=== PATIENT | female | born 1950 | race Caucasian/White ===

== ENCOUNTER 2018-10-10 23:47 | Emergency (ER) | payer BC, MEDICARE ==
[2018-10-11] MEDS ORDERED: IPRATROPIUM/ALBUTEROL 0.5-2.5 MG/3 ML AMPUL NEB ONE (00:24)
[2018-10-11 01:14] LABS: ABSOLUTE MONOCYTES (AUTO) 1.1 10^3/uL (0.1-1.4); ABSOLUTE NEUT (AUTO) 10.5 10^3/uL (1.7-8.2); BASOPHILS % (AUTO) 0.3 % (0-2); EOSINOPHILS % (AUTO) 0.2 % (0-6); HEMATOCRIT 35.8 % (36.0-47.0); HEMOGLOBIN 11.6 g/dL (12.0-15.5); MEAN CORPUSCULAR HGB CONC 32.5 g/dL (32.0-36.0); MEAN CORPUSCULAR VOLUME 80 fl (80-97); MONOCYTES % (AUTO) 8.5 % (3-13); PLATELET COUNT 220 10^3/uL (150-450); RED BLOOD COUNT 4.47 10^6/uL (3.72-5.28); RED CELL DISTRIBUTION WIDTH 14.7 % (11.5-14.0); TOTAL CELLS COUNTED % (AUTO) 100 %; WHITE BLOOD COUNT 12.7 10^3/uL (4.0-10.5)
[2018-10-11 01:41] LABS: ALANINE AMINOTRANSFERASE 59 U/L (9-52); ALBUMIN 3.4 g/dL (3.5-5.0); ALKALINE PHOSPHATASE 68 U/L (38-126); ANION GAP 8 (5-19); ASPARTATE AMINO TRANSFERASE 26 U/L (14-36); BILIRUBIN,DIRECT 0.2 mg/dL (0.0-0.4); BILIRUBIN,TOTAL 0.7 mg/dL (0.2-1.3); BLOOD UREA NITROGEN 10 mg/dL (7-20); CALCIUM 8.8 mg/dL (8.4-10.2); CARBON DIOXIDE 27 mmol/L (22-30); CHLORIDE 102 mmol/L (98-107); GLUCOSE 160 mg/dL (75-110); POTASSIUM 4.4 mmol/L (3.6-5.0); SODIUM 137.4 mmol/L (137-145); TOTAL PROTEIN 5.6 g/dL (6.3-8.2)
--- NOTE | 2018-10-11 01:48 | RADIOLOGY REPORT (SQ) ---
EXAM DESCRIPTION: XR CHEST 1 VIEW COMPLETED DATE/TME: 10/11/2018 00:19 CLINICAL HISTORY: 67 years, Female, fever, cough COMPARISON: None. NUMBER OF VIEWS: TECHNIQUE: LIMITATIONS: None. FINDINGS: No evidence of acute pulmonary infiltrate or pleural effusion. There is mild elevation of the left hemidiaphragm, probably due to prior left upper lobectomy. There is soft tissue prominence in the right paratracheal region. The heart is top normal in size. Pulmonary vascularity appears normal. IMPRESSION: No acute infiltrate. Soft tissue prominence in the right paratracheal region. While this may merely represent prominent brachiocephalic vessels, a mediastinal mass or adenopathy cannot be excluded. Nonemergent chest CT might prove helpful for further evaluation of this finding. copyright 2010 [employer]- All Rights Reserved
[2018-10-11 02:04] LABS: APPEARANCE,URINE TURBID; BILIRUBIN,URINE NEGATIVE (NEGATIVE); COLOR,URINE YELLOW; GLUCOSE, URINE NEGATIVE (NEGATIVE); KETONES,URINE NEGATIVE (NEGATIVE); LEUKOCYTE ESTERASE,URINE LARGE (NEGATIVE); NITRITE,URINE NEGATIVE (NEGATIVE); PROTEIN,URINE NEGATIVE (NEGATIVE); URINE SPECIFIC GRAVITY 1.024; UROBILINOGEN,URINE NEGATIVE mg/dL (<2.0)
--- NOTE | 2018-10-11 02:35 | ER Document Report ---
ED General - General Chief Complaint: Post Surgical Pain Stated Complaint: TROUBLE BREATHING Time Seen by Provider: 10/11/18 00:03 Primary Care Provider: RADHA RAVI MD [Primary Care Provider] - Follow up as needed Notes: Patient is a pleasant 67-year-old female with a recent diagnosis of a mass in her lung. 2 days [facility] and had a left upper lobe ectomy. This morning she was discharged home. This afternoon she started to develop a fever and then started having some wheezing and some difficulty breathing. No vomiting. No diarrhea. No abdominal pain. She did have a Solo catheter when she was admitted. No other complaints at this time. TRAVEL OUTSIDE OF THE [place] IN LAST 30 DAYS: No - Related Data Allergies/Adverse Reactions: Iodinated Contrast- Oral and IV Dye [IV Dye, Iodine Containing] Allergy (Interm ediate, Verified 01/22/14 14:10) Hives Sulfa (Sulfonamide Antibiotics) Allergy (Verified 01/22/14 14:10) rash, hives codeine [Codeine] Adverse Reaction (Severe, Verified 01/22/14 14:10) stomach spasms, difficulty breathing Past Medical History - Social History Smoking Status: Former Smoker Frequency of alcohol use: None Drug Abuse: None Family History: None Patient has suicidal ideation: No Patient has homicidal ideation: No - Past Medical History Cardiac Medical History: Reports: Hx Hypercholesterolemia Denies: Hx Coronary Artery Disease, Hx Heart Attack, Hx Hypertension Pulmonary Medical History: Reports: Hx Pneumonia - 10 yrs ago, not hospitalized Denies: Hx Asthma, Hx Bronchitis, Hx COPD Neurological Medical History: Denies: Hx Cerebrovascular Accident, Hx Seizures Endocrine Medical History: Reports: Hx Diabetes Mellitus Type 2 Renal/ Medical History: Denies: Hx Peritoneal Dialysis Musculoskeletal Medical History: Denies Hx Arthritis Past Surgical History: Reports: Hx Cholecystectomy, Hx Hysterectomy, Hx Thyroid Surgery - Immunizations Hx Diphtheria, Pertussis, Tetanus Vaccination: Yes - 9 yrs Hx Pneumococcal Vaccination: 03/06/12 Review of Systems - Review of Systems Notes: My Normal Review Basic REVIEW OF SYSTEMS: CONSTITUTIONAL : Fever EENT: Denies eye, ear, throat, or mouth pain or symptoms. Denies nasal or sinus congestion. CARDIOVASCULAR: Denies chest pain. RESPIRATORY: Wheezing and some dyspnea GASTROINTESTINAL: Denies abdominal pain. Denies nausea, vomiting, or diarrhea. GENITOURINARY: Denies difficulty urinating, painful urination, burning, frequency, or blood in urine. MUSCULOSKELETAL: Denies neck or back pain or joint pain or swelling. SKIN: Denies rash or skin lesions. NEUROLOGICAL: Denies altered mental status or loss of consciousness. Denies headache. Denies weakness or paralysis or loss of use of either side. Denies problems with gait or speech. Denies sensory or motor loss. ALL OTHER SYSTEMS REVIEWED AND NEGATIVE. Physical Exam - Vital signs Vitals: Temp Pulse Resp BP Pulse Ox 98.9 F 105 H 22 H 118/63 95 10/10/18 23:47 10/10/18 23:47 10/10/18 23:47 10/10/18 23:47 10/10/18 23:47 - Notes Notes: General Appearance: Well nourished, alert, cooperative, mild acute distress, no obvious discomfort. Vitals: reviewed, See vital signs table. Head: no swelling or tenderness to the head Eyes: PERRL, EOMI, Conjuctiva clear Mouth: No decreasd moisture Throat: No tonsillar inflammation, No airway obstruction, No lymphadenopathy Neck: Supple, no neck tenderness, No thyromegaly Lungs: Scattered wheezing, No rales, No rhonci, No accessory muscle use, good air exchange bilaterally. Heart: Normal rate, Regular rythm, No murmur, no rub Abdomen: Normal BS, soft, No rigidity, No abdominal tenderness, No guarding, no rebound, no abdominal masses, no organomegaly Extremities: good pulses in all extremities, no swelling or tenderness in the extremities, no edema. Skin: warm, dry, appropriate color, no rash Neuro: speech clear, oriented x 3, normal affect, responds appropriately to questions. Course - Re-evaluation Re-evalutation: 10/11/18 02:35 On reevaluation patient is feeling much improved after the breathing treatment. I turned off her oxygen. I will adjust Rocephin as it appears that she may have a UTI. This could be contaminant however she has fever and large leukocyte esterase and therefore we will going treat her. I will monitor her for another hour with oxygen turned off to make sure there her vital signs remained stable and that her breathing remains normal 10/11/18 06:11 She continues to feel well and look improved. Said her breathing continues to feel normal. She has not had recurrent fever. Heart rate is in upper 90s. She is safe to be discharged home. I did give her a dose of Rocephin. I will place her on Keflex. I did discuss the case with her surgeon, Dr. Ravi. I went over the CT scan findings with him and the patient's laboratory findings. He is agreement with plan of patient see me in box for UTI with return to ER if she has worsening recurrent fevers, difficulty breathing, or feels unwell. Patient agrees with plan as well. I informed her to have a very low threshold to return to ER if she feels that she is worsening in any way. Patient will be discharged home. Dictation of this chart was performed using voice recognition software; therefore, there may be some unintended grammatical errors. - Vital Signs Vital signs: Temp Pulse Resp BP Pulse Ox 98.8 F 72 19 110/59 L 99 10/11/18 05:59 10/11/18 05:59 10/11/18 05:59 10/11/18 05:59 10/11/18 05:59 - Laboratory Result Diagrams: 10/11/18 00:45 10/11/18 00:45 Laboratory results interpreted by me: 10/11/18 10/11/18 10/11/18 00:45 00:45 01:00 WBC 12.7 H Hgb 11.6 L Hct 35.8 L MCH 26.0 L RDW 14.7 H Seg Neutrophils % 83.0 H Lymphocytes % 8.0 L Absolute Neutrophils 10.5 H Glucose 160 H ALT 59 H Total Protein 5.6 L Albumin 3.4 L Ur Leukocyte Esterase LARGE H Discharge - Discharge Clinical Impression: Fever Qualifiers: Fever type: unspecified Qualified Code(s): R50.9 - Fever, unspecified UTI (urinary tract infection) Qualifiers: Urinary tract infection type: site unspecified Hematuria presence: without hematuria Qualified Code(s): N39.0 - Urinary tract infection, site not specified Dyspnea Qualifiers: Dyspnea type: unspecified Qualified Code(s): R06.00 - Dyspnea, unspecified Condition: Good Disposition: HOME, SELF-CARE Additional Instructions: I just discussed your CT scan findings with Dr. Tan. He says the findings on the CT scan are normal postoperatively. You do have a urinary tract infection. I did send your urine for culture so if it grows out bacteria not covered by the antibiotic I started you on we can call you and change antibiotic. Please use albuterol vials and your nebulizer machine at home to help with any wheezing or difficulty breathing. Have a low threshold to return to ER if you are having recurrent fevers not responding to Tylenol, fevers are still occurring 24 hours for now, wheezing not improving with the nebulizer treatments at home, or if you feel that you are worsening in any way. Prescriptions: Albuterol Sulfate [Ventolin 0.083% Neb 2.5 mg/3 mL Ampul] 1 vial NEB Q4 PRN #30 vial PRN Reason: wheezing difficulty breathing Cephalexin Monohydrate [Keflex 500 mg Capsule] 500 mg PO TID #21 capsule Referrals: RADHA RAVI MD [Primary Care Provider] - Follow up in 3-5 days
[2018-10-11] MEDS ORDERED: CEFTRIAXONE 1 GM/D5W RTU 1 GM/50 ML RTUPB IV ONE (03:00)
[2018-10-11] MEDS ORDERED: OXYCODONE HCL SR 10 MG TABLET PO ONE (03:34)
[2018-10-11] MEDS ORDERED: CEFTRIAXONE INJ 1000 MG VIAL ONE (03:34)
[2018-10-11] MEDS ORDERED: ONDANSETRON HCL INJ/PF 4 MG/2 ML SDV IV ONE (05:29)
--- NOTE | 2018-10-11 05:31 | RADIOLOGY REPORT (SQ) ---
EXAM DESCRIPTION: CT CHEST WITHOUT IV CONTRAST COMPLETED DATE/TME: 10/11/2018 03:37 CLINICAL HISTORY: 67 years, Female, confirm xray findings COMPARISON: None. TECHNIQUE: Axial CT images of the chest were obtained without contrast. Sagittal and coronal reformats were performed. DLP 666 Images stored on PACS. All CT scanners at this facility use dose modulation, iterative reconstruction, and/or weight based dosing when appropriate to reduce radiation dose to as low as reasonably achievable (ALARA). [facility]: Dose Right [facility]: CareDose [facility]: Dose Right [facility]: Teradose 4D [facility]: [employer] LIMITATIONS: None. FINDINGS: The visualized portions of the upper abdomen are unremarkable. The thoracic aorta is unremarkable. The heart appears unremarkable. There is a small amount of pneumomediastinum. There is no pericardial effusion. Calcified left hilar lymph nodes are noted. No pathologically enlarged mediastinal lymph nodes. The tracheobronchial tree is unremarkable. There is no focal consolidation. There is a small left hemopneumothorax. Tiny right pneumothorax. No displaced fracture is identified. Nondisplaced fractures involving the anterior aspect of the left second through fourth ribs is suspected. There is subcutaneous emphysema along the anterior aspect of the left chest. IMPRESSION: Small left hydropneumothorax with a tiny amount of pneumomediastinum and subcutaneous emphysema along the left chest, likely secondary to nondisplaced fractures involving the left ribs. Tiny right pleural effusion. TECHNICAL DOCUMENTATION: Quality ID # [id number]: Final reports with documentation of one or more dose reduction techniques (e.g., Automated exposure control, adjustment of the mA and/or kV according to patient size, use of iterative reconstruction technique) copyright 2011 [employer]- All Rights Reserved
[2018-10-11 05:59] VITALS: BP 110/59
== END 2018-10-11 06:37 | disposition home or self-care (01) ==
LOC: ER 23:47
DX: N39.0 Urinary tract infection, site not specified (principal); G89.18 Other acute postprocedural pain; R06.2 Wheezing; R50.9 Fever, unspecified; R06.00 Dyspnea, unspecified; E78.00 Pure hypercholesterolemia, unspecified; E11.9 Type 2 diabetes mellitus without complications; Z88.2 Allergy status to sulfonamides; Z88.6 Allergy status to analgesic agent; Z90.49 Acquired absence of other specified parts of digestive tract; Z90.710 Acquired absence of both cervix and uterus
CPT/HCPCS: 94640; 99285; 96374; 96375; 36415; 87040; 87086; 85025; 80053; 81001; 71045; 71250; A9270 ×2; J0696; J2405; J7620

== ENCOUNTER 2018-10-15 20:57 | Emergency (ER) | payer MEDICARE ==
[2018-10-15 21:43] LABS: ABSOLUTE BASOPHILS # (AUTO) 0.1 10^3/uL (0.0-0.2); ABSOLUTE EOSINOPHILS # (AUTO) 0.5 10^3/uL (0.0-0.6); ABSOLUTE LYMPHOCYTES (AUTO) 2.5 10^3/uL (0.5-4.7); ABSOLUTE NEUT (AUTO) 6.9 10^3/uL (1.7-8.2); BASOPHILS % (AUTO) 1.3 % (0-2); EOSINOPHILS % (AUTO) 4.9 % (0-6); HEMATOCRIT 37.6 % (36.0-47.0); HEMOGLOBIN 12.4 g/dL (12.0-15.5); LYMPHOCYTES % (AUTO) 22.6 % (13-45); MEAN CORPUSCULAR HEMOGLOBIN 26.3 pg (27.0-33.4); MEAN CORPUSCULAR VOLUME 80 fl (80-97); MONOCYTES % (AUTO) 9.3 % (3-13); PLATELET COUNT 346 10^3/uL (150-450); RED BLOOD COUNT 4.71 10^6/uL (3.72-5.28); RED CELL DISTRIBUTION WIDTH 14.9 % (11.5-14.0); SEGMENTED NEUTROPHILS % (AUTO) 61.9 % (42-78); TOTAL CELLS COUNTED % (AUTO) 100 %; WHITE BLOOD COUNT 11.1 10^3/uL (4.0-10.5)
[2018-10-15 22:01] LABS: ALANINE AMINOTRANSFERASE 32 U/L (9-52); ALBUMIN 3.3 g/dL (3.5-5.0); ALKALINE PHOSPHATASE 92 U/L (38-126); ANION GAP 10 (5-19); ASPARTATE AMINO TRANSFERASE 16 U/L (14-36); BILIRUBIN,DIRECT 0.2 mg/dL (0.0-0.4); BILIRUBIN,TOTAL 0.5 mg/dL (0.2-1.3); BLOOD UREA NITROGEN 13 mg/dL (7-20); CALCIUM 9.6 mg/dL (8.4-10.2); CARBON DIOXIDE 26 mmol/L (22-30); CHLORIDE 103 mmol/L (98-107); GLUCOSE 145 mg/dL (75-110); POTASSIUM 4.2 mmol/L (3.6-5.0); SODIUM 139.3 mmol/L (137-145); TOTAL PROTEIN 5.9 g/dL (6.3-8.2)
--- NOTE | 2018-10-15 22:11 | ER Document Report ---
ED General - General Chief Complaint: Post Surgical Pain Stated Complaint: POST OP COMPLICATION Time Seen by Provider: 10/15/18 21:25 Primary Care Provider: RADHA BERNSTEIN MD [Primary Care Provider] - Follow up as needed Notes: Patient is a 67-year-old female with a past medical history of a partial left- sided pneumonectomy within the past 1 week who presents due to concerns of serous drainage coming from the mid axillary incisional line. Patient states that earlier today she began leaking clear fluid from the area and each time she would cough a large quantity would expel from the wound. States that she has not had drainage previously from this area and was concerned prompting her to come to the emergency department. Family did contact on-call CT surgeon who reported that the patient would likely just need a stitch placed in an adhesive dressing. The patient denies any increased shortness of breath, spreading redness to the area or increasing pain to the area. Does note that since she had surgery she has continued to have intermittent, spasming, stabbing pain to the affected area in the left lower rib space. Regards the pain is being mild to moderate, improved by Tylenol and oxycodone. Nothing seems to worsen or trigger the pain. Denies fever or constitutional symptoms. TRAVEL OUTSIDE OF THE [place] IN LAST 30 DAYS: No - Related Data Allergies/Adverse Reactions: Iodinated Contrast- Oral and IV Dye [IV Dye, Iodine Containing] Allergy (Intermediate, Verified 01/22/14 14:10) Hives Sulfa (Sulfonamide Antibiotics) Allergy (Verified 01/22/14 14:10) rash, hives codeine [Codeine] Adverse Reaction (Severe, Verified 01/22/14 14:10) stomach spasms, difficulty breathing Past Medical History - General Information source: Patient - Social History Smoking Status: Never Smoker Frequency of alcohol use: None Drug Abuse: None Lives with: Spouse/Significant other Family History: Reviewed & Not Pertinent Patient has suicidal ideation: No Patient has homicidal ideation: No - Past Medical History Cardiac Medical History: Reports: Hx Hypercholesterolemia Denies: Hx Coronary Artery Disease, Hx Heart Attack, Hx Hypertension Pulmonary Medical History: Reports: Hx Pneumonia - 10 yrs ago, not hospitalized Denies: Hx Asthma, Hx Bronchitis, Hx COPD Neurological Medical History: Denies: Hx Cerebrovascular Accident, Hx Seizures Endocrine Medical History: Reports: Hx Diabetes Mellitus Type 2 Renal/ Medical History: Denies: Hx Peritoneal Dialysis Musculoskeletal Medical History: Denies Hx Arthritis Past Surgical History: Reports: Hx Cholecystectomy, Hx Hysterectomy, Hx Thyroid Surgery - Immunizations Hx Diphtheria, Pertussis, Tetanus Vaccination: Yes - 9 yrs Hx Pneumococcal Vaccination: 03/06/12 Review of Systems - Review of Systems Notes: Constitutional: Negative for fever. HENT: Negative for sore throat. Eyes: Negative for visual changes. Cardiovascular: Negative for chest pain. Respiratory: Negative for shortness of breath. Gastrointestinal: Negative for abdominal pain, vomiting or diarrhea. Genitourinary: Negative for dysuria. Musculoskeletal: Negative for back pain. Skin: Positive for drainage from the wound in the left mid axillary line Neurological: Negative for headaches, weakness or numbness. 10 point ROS negative except as marked above and in HPI. Physical Exam - Vital signs Vitals: Pulse Resp BP Pulse Ox 85 22 H 144/78 H 96 10/15/18 21:00 10/15/18 21:00 10/15/18 21:00 10/15/18 21:00 Interpretation: Hypertensive Notes: PHYSICAL EXAMINATION: GENERAL: Well-appearing, well-nourished and in no acute distress. HEAD: Atraumatic, normocephalic. EYES: Pupils equal round and reactive to light, extraocular movements intact, sclera anicteric, conjunctiva are normal. ENT: nares patent, oropharynx clear without exudates. Moist mucous membranes. NECK: Normal range of motion, supple without lymphadenopathy LUNGS: Breath sounds clear to auscultation bilaterally and equal. No wheezes rales or rhonchi. HEART: Regular rate and rhythm without murmurs ABDOMEN: Soft, nontender, normoactive bowel sounds. No guarding, no rebound. No masses appreciated. EXTREMITIES: Normal range of motion, no pitting or edema. No cyanosis. NEUROLOGICAL: No focal neurological deficits. Moves all extremities spontaneously and on command. PSYCH: Normal mood, normal affect. SKIN: Warm, Dry, normal turgor, there is a well-healing mid axillary incisional line [address] There is a clear, serous fluid leaking from between the suture lines. Course - Re-evaluation Re-evalutation: 10/15/18 22:17 Presentation of a very well-appearing 67-year-old female had a partial left pneumonectomy approximately 1 week ago at [facility] who presents due to concerns of serous drainage coming out of her mid axillary surgical incision line. The incision itself is well in appearance, applying gentle pressure on the area does result in expulsion of a clear, serous fluid. Patient is saturating 95 to 96% on room air similar to when she was here on the eighth. She denies any significant increase in shortness of breath, no fever or constitutional symptoms. White blood cell count has down trended somewhat since her most recent visit on the eighth. Awaiting chest x-ray and then will discuss the case with the patient's primary team at [facility]. 10/16/18 02:04 Patient had 3 stitches horizontal mattress placed. Middle stitch that had been there previously was effectively untied and not holding the wound edges together likely contributing to the drainage. I did discuss this case with Dr. dhaliwal the thoracic surgeon on-call at [facility] who is in agreement with this management approach. Patient and at bedside are comfortable. Labs and chest x-ray unchanged from previous. At this time will discharge with return precautions and follow-up recommendations. Verbal discharge instructions given a the bed side and opportunity for questions given. Medication warnings reviewed. Patient is in agreement with this plan and has verbalized understanding of return precautions and the need for primary care follow-up in the next 24-72 hours. - Vital Signs Vital signs: Temp Pulse Resp BP Pulse Ox 98.1 F 79 16 115/59 L 95 10/16/18 02:27 10/16/18 02:27 10/16/18 02:27 10/16/18 02:27 10/16/18 02:27 - Laboratory Result Diagrams: 10/15/18 21:30 10/15/18 21:30 Laboratory results interpreted by me: 10/15/18 10/15/18 21:30 21:30 WBC 11.1 H MCH 26.3 L RDW 14.9 H Glucose 145 H Total Protein 5.9 L Albumin 3.3 L - Diagnostic Test Radiology reviewed: Image reviewed, Reports reviewed Radiology results interpreted by me: 10/16/18 02:05 Chest x-ray: No acute infiltrate or pneumothorax Discharge - Discharge Clinical Impression: Wound drainage, History of lung cancer Condition: Good Disposition: HOME, SELF-CARE Additional Instructions: Keep the dressing in place and change once every 24 hours. Return if you have increasing drainage from the area, increasing swelling around the area, fever greater than 101 F, increasing redness around the area of increasing pain, increased shortness of breath or any other symptoms that are worrisome to you. Referrals: RADHA BERNSTEIN MD [Primary Care Provider] - Follow up as needed
[2018-10-15] MEDS ORDERED: OXYCODONE HCL IR 5 MG TABLET PO ONE (22:41)
--- NOTE | 2018-10-15 23:03 | RADIOLOGY REPORT (SQ) ---
EXAM DESCRIPTION: XR CHEST 1 VIEW COMPLETED DATE/TME: 10/15/2018 22:10 CLINICAL HISTORY: 67 years Female, post pneumonectomy, serous drainage from chest COMPARISON: 10/11/18 NUMBER OF VIEWS/TECHNIQUE: 1/AP FINDINGS: Mild elevation of the left hemidiaphragm. Clear parenchyma. Normal cardiac silhouette. At No pneumothorax. Stable bony thorax. IMPRESSION: No significant change.
[2018-10-16] MEDS ORDERED: LIDOCAINE 1% INJ-PF (10 MG/ML) 30 ML SDV INJ ONE (01:01)
[2018-10-16 02:29] VITALS: BP 115/59
[2018-10-16] MEDS ORDERED: HYDROCODONE/ACETAMINOPHEN 5-325 MG (6 TAB/ER DISP) PO PRN (02:37)
== END 2018-10-16 03:19 | disposition home or self-care (01) ==
LOC: ER 20:57
DX: T81.31XA Disruption of external operation (surgical) wound, not elsewhere classified, initial encounter (principal); Y83.6 Removal of other organ (partial) (total) as the cause of abnormal reaction of the patient, or of later complication, without mention of misadventure at the time of the procedure; Z90.2 Acquired absence of lung [part of]; Z85.118 Personal history of other malignant neoplasm of bronchus and lung; R25.2 Cramp and spasm; R07.81 Pleurodynia; E11.9 Type 2 diabetes mellitus without complications; Z91.041 Radiographic dye allergy status; Z88.2 Allergy status to sulfonamides
CPT/HCPCS: 99283; 36415; 83605; 85025; 80053; 71045; 12002; J3490; A9270 ×2

== ENCOUNTER → 2018-11-06 | Outpatient (CLI) | payer MEDICARE ==
--- NOTE | 2018-11-06 16:19 | RADIOLOGY REPORT (SQ) ---
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 TECHNIQUE: Multiplanar imaging includes noncontrasted T1, T2, FLAIR, diffusion with ADC map and post gadolinium contrast T1 sequences. Images stored on PACS. CONTRAST TYPE AND DOSE: 15 mL Dotarem. RENAL FUNCTION: Not indicated. ACR Type II contrast agent associated with few, if any, unconfounded cases of NSF LIMITATIONS: None. FINDINGS: ANATOMY: No anomalies. Normal vascular flow voids. Pituitary fossa normal. CSF SPACES: Normal in size and contour. No hemorrhage. CEREBRUM: Sulci and gyri normal in size and contour. Normal white matter signal on FLAIR imaging. No evidence of hemorrhage, mass, or extraaxial fluid collection. No abnormal enhancement post contrast. POSTERIOR FOSSA: No signal alteration. No hemorrhage. No edema, masses, or mass effect. Internal leigh tory canals, cerebellopontine angles, mastoids normal. No enhancing lesions. No abnormal enhancement post contrast. DIFFUSION IMAGING: Negative for acute or subacute infarction. ORBITS: No masses. Globes normal. PARANASAL SINUSES: No fluid levels. Mucosa normal. OTHER: No other significant finding. IMPRESSION: No evidence of metastatic disease. EVIDENCE OF ACUTE STROKE: NO. TECHNICAL DOCUMENTATION: JOB ID: [id number]- All Rights Reserved Reading location - IP/workstation name: [email or web address]
== END ==
LOC: RAD 15:13
PROVIDERS: ATTEND Internal Medicine Hematology & Oncology
DX: C34.92 Malignant neoplasm of unspecified part of left bronchus or lung (principal)
CPT/HCPCS: 82565; 70553; A9576